=== PATIENT | female | born 1965 | race Caucasian/White ===

== ENCOUNTER 2022-11-07 10:48 | Emergency (ER) | payer BC, SELFPAY ==
[2022-11-07] VITALS (11 sets, daily range): BP systolic 141–175; BP diastolic 75–94; PULSE 61–70; RESP 12–20; TEMP 36.1; O2SAT 95–100
--- NOTE | ~2022-11-07 | CT_ITS ---
EXAMINATION: CT brain wo con DATE: 11/07/2022 13:04 INDICATION: Headache. Pressure behind the eyes. TECHNIQUE: Computed tomography (CT) of the head was performed without intravenous contrast. The mA wa s adjusted according to patient size. Iterative reconstruction technique was employed. The dose-lengt h product was 529.67 mGy-cm. COMPARISON: None FINDINGS: There is no intracranial hemorrhage, acute infarction, or abnormal intracranial mass lesion . The ventricles are normal in size. The orbits are normal. There is mucosal thickening in the parana nataly sinuses. The mastoid air cells are normal. IMPRESSION: 1. Normal brain. Reviewed, dictated and finalized at location A. ETING ANALYST IMPRESSION: 1. Normal brain.
--- NOTE | 2022-11-07 12:15 | ECG_ITS ---
Measurements Intervals [place] Rate: 63 P: 74 WI: 166 QRS: 37 QRSD: 93 T: 50 QT: 398 QTc: 409 Interpretive Statements SINUS RHYTHM NORMAL ECG NO PREVIOUS ECG AVAILABLE FOR COMPARISON Electronically Signed On 11-07-2022 13:18:08 TEST LEAD by Manpreet Webb M.D.
[2022-11-07 12:42] LABS: Basophils Absolute Auto 0.1 K/mm3 (0.0-0.1); Basophils Percent Auto 0.9 % (0.2-1.2); Eosinophils Absolute Auto 0.4 K/mm3 (0-0.3); Eosinophils Percent Auto 5.7 % (0-4.4); Hematocrit 44.9 % (37.0-47.0); Hemoglobin 15.4 g/dL (12.0-15.0); Immature Granulocyte Absolute 0.02 K/mm3 (0.00-0.031); Immature Granulocyte Percent A 0.3 % (0-0.5); Lymphocytes Absolute Auto 1.79 K/mm3 (0.9-3.2); Lymphocytes Percent Auto 26.1 % (18.3-44.2); Mean Corpuscular HGB Conc 34.3 g/dl (32-36); Mean Corpuscular Hemoglobin 32.2 pg (26-34); Mean Corpuscular Volume 93.7 fl (80-100); Mean Platelet Volume 9.2 fl (7.4-10.4); Monocytes Absolute Auto 0.6 K/mm3 (0.1-0.6); Monocytes Percent Auto 8.7 % (2.6-8.5); Neutrophils Percent Auto 58.3 % (45.5-73.1); Platelet Count Result 205 k/mm3 (150-375); Red Blood Count 4.79 M/mm3 (4.2-5.4); Red Cell Distribution Width 12.4 % (11.5-14.5); White Blood Count 6.9 K/mm3 (4.5-10.0)
[2022-11-07 12:45] LABS: Appearance Urine Clear (Clear); Bilirubin Urine Negative (Negative); Blood Urine Trace-intact (Negative); Color Urine Yellow (Yellow); Glucose Urine UA Negative (Negative); Ketones Urine Negative (Negative); Leukocyte Esterase Ur Negative LEU/UL (Negative); Nitrate Urine Negative (Negative); Protein Urine Negative (Negative); Specific Grav Ur 1.015 (1.001-1.035); Urobilinogen Urine 0.2 mg/dL (<2.0); pH Urine 6.5 (5.0-9.0)
[2022-11-07 12:51] LABS: Bacteria Urine Trace /hpf; Mucus Urine Rare /lpf; RBC Urine 0-2 /hpf (0-2); Squamous Epithelial Cell Urine Rare /hpf (Few); WBC Urine 0-3 /hpf
[2022-11-07 12:53] LABS: Add Urine Microscopic? YES
[2022-11-07 12:55] LABS: Alanine Aminotransferase 97 U/L (6-35); Albumin Level 4.6 g/dL (3.5-5.1); Alkaline Phosphatase 84 U/L (38-126); Anion Gap 7 mmol/L (8-16); Aspartate Amino Transferase 85 U/L (14-36); Bilirubin,Total 0.7 mg/dL (0.2-1.3); Blood Urea Nitrogen 14 mg/dL (7-17); Calcium 9.8 mg/dL (8.4-10.2); Carbon Dioxide 29 mmol/L (22-30); Chloride 99 mmol/L (98-107); Estimated CRCL calculation 72 ml/min; Estimated Glomerular Filt Rate > 60; Glucose 86 mg/dL (65-110); Potassium 3.5 mmol/L (3.4-5.0); Sodium 135 mmol/L (137-145)
[2022-11-07] MEDS: HYDROcodone/acetaminophen (*CRX) 5-325 MG TABLET 1 TAB PO (13:37)
[2022-11-07] MEDS: amLODIPine BESYLATE 5 MG TABLET PO (13:38)
--- NOTE | 2022-11-07 14:10 | ED.GENADULT ---
HPI - General Adult General Chief complaint: Recheck/Abnormal Lab/Rx Stated complaint: high blood pressure Time Seen by Provider: 11/07/22 12:10 Source: patient Mode of arrival: ambulatory Limitations: no limitations History of Present Illness HPI narrative: 57-year-old with a history of anxiety and depression here with the complaints of having headache for the past 5 days having headaches mostly retroorbital. Patient states that her blood pressure has been running high. She has seen her primary doctor a week ago and was started on hydrochlorothiazide. She denies any fever or chills no history of nausea or vomiting. Onset (ago): day(s) (5) Location: head Radiation: non-radiation Severity: moderate Quality: aching Pain Consistency: constant Relieving factors: none Exacerbating factors: none Associated symptoms: denies other symptoms Related Data Allergies Allergy/AdvReac Type Severity Reaction Status Date / Time Iodinated Contrast Media AdvReac Intermediate Nausea and Verified 11/07/22 12:05 Vomiting MORPHINE AdvReac Intermediate Itching Uncoded 11/07/22 12:05 Review of Systems Review of Systems: All systems reviewed & are unremarkable except as noted in HPI and below Constitutional: Constitutional: Reports no additional constitutional complaints Eyes: Eyes: Reports no additional eye complaints ENT: Reports system reviewed and no additional complaints, except as documented Cardiovascular: Cardiovascular: Reports no additional cardiovascular complaints Respiratory: Respiratory: Reports no additional respiratory complaints Gastrointestinal: Gastrointestinal: Reports no additional gastrointestinal complaints Musculoskeletal: Musculoskeletal: Reports no additional musculoskeletal complaints Neurologic: Reports as per HPI [facility] Surgical History Surgical History History of appendectomy History of hip surgery RIGHT HIP History of lobectomy of lung Family History Family History Other Asthma Depression Diabetes mellitus Social History Social History Smoking packs per day: 0.5 Smoking cigarettes per day: 10.0 Years smoked: 40 Smoking pack-years: 20.00 Smoking status: Former smoker Tobacco type: cigarettes Smoking end date: 04/27/22 Alcohol intake: current Alcohol use details: DAILY- WINE Substance use: never Substance use type: does not use Gender identity (if verbalized by the patient): Female Spiritual care concerns: No Agree to blood products: Yes Exam Narrative: GENERAL: Well-appearing, well-nourished, and in no acute distress. HEAD: Normocephalic, atraumatic. EYES: PERRLA and EOMI. NECK: Supple. CHEST: Clear to auscultation. No respiratory distress. HEART: Regular rate and rhythm. No murmur heard. Normal peripheral pulses. ABDOMEN: Soft, nontender, nondistended, normal active bowel sounds. EXTREMITIES: Normal range of motion. No edema. SKIN: Warm, dry, no rash. NEURO: No focal deficits. Alert and oriented x3. PSYCH: Normal mood and affect. Course Course Emergency Course: 57-year-old here with a headache, mostly retro-orbital physical exam was unremarkable with a EKG which was normal sinus no acute findings lab work was unremarkable and CT was normal as well I did give her Norvasc 5 mg p.o. very initial blood pressure was 175/90 after a couple hours of observation it is now 155/81 and she is feeling much better. Will start on Norvasc 5 mg daily recommended her to follow-up with her primary doctor. Vital Signs Vital signs: Vital Signs Temperature 36.1 C L 11/07/22 11:45 Pulse Rate 65 11/07/22 11:45 Respiratory Rate 14 11/07/22 11:45 Blood Pressure 175/90 H 11/07/22 11:45 Pulse Oximetry 98 11/07/22 11:45 Oxygen Delivery Room Air 11/07/22 11:45 Temperature 36.1 C L
== END 2022-11-07 14:30 | disposition home or self-care (01) ==
PROVIDERS: Emergency Provider Family Medicine; PCP Emergency Medicine
DX: R51.9 Headache, unspecified (principal); I10 Essential (primary) hypertension; Z90.2 Acquired absence of lung [part of]; Z87.891 Personal history of nicotine dependence
CPT/HCPCS: 36415; 70450; 80053; 81001; 85025; 93005; 99284; A9270

== ENCOUNTER 2023-09-01 15:24 | Outpatient (CLI) | payer OTHER, SELFPAY ==
--- NOTE | ~2023-09-01 | XR_ITS ---
Lumbosacral Spine: AP, oblique, and lateral views Clinical History: Pain Findings: The normal lordotic curve is maintained. The vertebral bodies and posterior elements are i ntact. The intervertebral disc spaces are preserved. There is moderate facet arthropathy at the lowe r lumbar spine. The sacroiliac joints are normally outlined. Impression: Moderate facet arthropathy lower lumbar spine. Reviewed, dictated and finalized at location . 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
== END 2023-09-01 15:25 ==
PROVIDERS: PCP Emergency Medicine; Visit Provider Emergency Medicine
DX: M47.816 Spondylosis without myelopathy or radiculopathy, lumbar region (principal)
CPT/HCPCS: 72110

== ENCOUNTER 2023-10-22 06:50 | Day surgery (SDC) | payer OTHER, SELFPAY ==
[2023-10-08 10:24] VITALS: BMI 31.1
[2023-10-09 10:09] VITALS: BMI 31.0
[2023-10-22 07:45] VITALS: BP 140/84; PULSE 85; RESP 14; TEMP 36.8; O2SAT 97
--- NOTE | 2023-10-22 07:52 | WPDANESEPPF ---
Anes - Initial Pre Proc Eval Procedure: Operation Date: 10/22/23 11:30 Proposed Procedures p Screening Colonoscopy - Lamberto Donohue MD Date/Time: 10/22/23 07:52 Surgeon: Lamberto Dnoohue MD Pre Op Diagnosis: Neoplasm Screening Patient Data Age: 58 Gender: F Height: 1.63 m Weight: 80.2 kg Last Vital Signs Temp 36.8 C 10/22/23 07:45 Pulse 85 10/22/23 07:45 Resp 14 10/22/23 07:45 BP 140/84 10/22/23 07:45 Pulse Ox 97 10/22/23 07:45 O2 Del Method Room Air 10/22/23 07:45 Allergies Allergy/AdvReac Type Severity Reaction Status Date / Time Iodinated Contrast Media AdvReac Intermediate Nausea and Verified 10/22/23 07:40 Vomiting MORPHINE AdvReac Intermediate Itching Uncoded 10/22/23 07:40 Home Medications Medication Instructions Recorded Confirmed Type hydrochlorothiazide 25 mg tablet 25 mg PO DAILY #90 tabs 05/01/23 10/22/23 Rx amlodipine 10 mg tablet 10 mg PO DAILY #90 tabs 06/04/23 10/22/23 Rx duloxetine 30 mg capsule,delayed 30 mg PO DAILY #30 caps 10/06/23 10/22/23 Rx release fluoxetine 20 mg capsule (Prozac) 40 mg PO DAILY 10/06/23 10/22/23 History meloxicam 15 mg tablet 15 mg PO DAILY #30 tabs 10/06/23 10/22/23 Rx Patient hx anesthesia problems: none Family hx anesthesia problems: none Results Review: All pre-operative results and documents have been reviewed as part of the pre-operative evaluation. [facility] Past Medical History Medical History (Updated 10/22/23 @ 07:53 by Jossue Saavedra MD) Benign hypertension Depression History of tobacco abuse Lung cancer Obesity Surgical History Surgical History History of appendectomy History of hip surgery RIGHT HIP History of lobectomy of lung Family History Family History Other Asthma Depression Diabetes mellitus Social History Social History Smoking packs per day: 0.5 Smoking cigarettes per day: 10.0 Years smoked: 40 Smoking pack-years: 20.00 Smoking status: Current some day smoker Tobacco type: cigarettes Smoking end date: 04/27/22 Alcohol intake: current Alcohol use details: DAILY- WINE Substance use: never Substance use type: does not use Lack of Transportation: No Lack of Food: Never True Current Housing: I Have Housing Concerned About Future Housing: No Difficulty Paying Gas/Electric Bills: No Difficulty Paying for Meds: No Currently Unemployed: No Education: Associate Degree Difficulty w/ Childcare or Family Care: No Living arrangements: with roommate(s) Gender identity (if verbalized by the patient): Female Spiritual care concerns: No Agree to blood products: Yes Anes - Eval Final PreProcedure Day of Procedure 10/22/23 07:52 Patient weight: normal Heart: regular rate and rhythm Lungs: clear to auscultation Airway: Mallampati scale class II Neurological: alert and oriented Last oral intake: >/= 8 hours ASA classification: III Emergent: no Anesthetic plan: proceed Anesthesia type and monitoring: general GIVS and standard monitoring Results Review: All pre-operative results and documents have been reviewed as part of the pre-operative evaluation. Informed Consent: The patient's anesthetic plan and its attendant risks and benefits were discussed with the patient/family/POA. Questions were solicited and answers provided to the satisfaction of the patient/family/POA.
[2023-10-22] MEDS: LACTATED RINGERS 1,000 ML 150 ML IV CONT (07:57)
--- NOTE | 2023-10-22 07:58 | PM.HPGS ---
History of Present Illness History of Present Illness Consent: Risks, benefits, and alternatives have been discussed and questions answered. Patient agrees to proceed with procedure. Chief complaint: Neoplasm Screening Narrative: Mana Bui is a 58 year old female presents for screening colonoscopy. Patient's current weight appetite and bowel movements are normal. Patient denies abdominal pain. She has had no bleeding. Family history noncontributory. Review of Systems Review of Systems: Review of systems noncontributory. [facility] Past Medical History Medical History (Updated 10/22/23 @ 07:53 by Jossue Saavedra MD) Benign hypertension Depression History of tobacco abuse Lung cancer Obesity Surgical History Surgical History History of appendectomy History of hip surgery RIGHT HIP History of lobectomy of lung Family History Family History Other Asthma Depression Diabetes mellitus Social History Social History Smoking packs per day: 0.5 Smoking cigarettes per day: 10.0 Years smoked: 40 Smoking pack-years: 20.00 Smoking status: Current some day smoker Tobacco type: cigarettes Smoking end date: 04/27/22 Alcohol intake: current Alcohol use details: DAILY- WINE Substance use: never Substance use type: does not use Lack of Transportation: No Lack of Food: Never True Current Housing: I Have Housing Concerned About Future Housing: No Difficulty Paying Gas/Electric Bills: No Difficulty Paying for Meds: No Currently Unemployed: No Education: Associate Degree Difficulty w/ Childcare or Family Care: No Living arrangements: with roommate(s) Gender identity (if verbalized by the patient): Female Spiritual care concerns: No Agree to blood products: Yes Meds Home Medications and Allergies Home Medications Medication Instructions Recorded Confirmed Type hydrochlorothiazide 25 mg tablet 25 mg PO DAILY #90 tabs 05/01/23 10/22/23 Rx amlodipine 10 mg tablet 10 mg PO DAILY #90 tabs 06/04/23 10/22/23 Rx duloxetine 30 mg capsule,delayed 30 mg PO DAILY #30 caps 10/06/23 10/22/23 Rx release fluoxetine 20 mg capsule (Prozac) 40 mg PO DAILY 10/06/23 10/22/23 History meloxicam 15 mg tablet 15 mg PO DAILY #30 tabs 10/06/23 10/22/23 Rx Allergies Allergy/AdvReac Type Severity Reaction Status Date / Time Iodinated Contrast Media AdvReac Intermediate Nausea and Verified 10/22/23 07:40 Vomiting MORPHINE AdvReac Intermediate Itching Uncoded 10/22/23 07:40 Vital Signs Vital Signs - 24 hr 10/22/23 07:45 Temperature 98.3 F Pulse Rate 85 Respiratory Rate 14 Blood Pressure 140/84 Pulse Oximetry 97 Oxygen Delivery Room Air Exam Narrative: Physical exam reveals patient to be alert. Vital signs stable. HEENT exam is unremarkable. Patient is anicteric. Lungs are clear to auscultation and to percussion extra sounds. Abdomen bowel sounds are present soft nontender with no organomegaly. Digital external rectal exam is normal. Assessment and Plan Assessment and plan (1) Screening for colon cancer: Code(s): Z12.11 - Encounter for screening for malignant neoplasm of colon Status: Acute Assessment and Plan: Patient presents today for screening colonoscopy. She appears to be at average risk for polyp colon polyps.
[2023-10-22 08:52] VITALS: BP 111/59; PULSE 68; RESP 18; O2SAT 98
[2023-10-22 09:02] VITALS: BP 120/73; PULSE 68; RESP 16; O2SAT 100
--- NOTE | 2023-10-22 09:07 | WPDANESPN ---
Anes - Prog Note Post-Op Date/Time: 10/22/23 09:07 Cardiovascular status: normal Respiratory status: normal Airway patency: baseline Mental status: baseline Vital Signs: Last Vital Signs Temp 36.8 C 10/22/23 07:45 Pulse 68 10/22/23 08:52 Resp 18 10/22/23 08:52 BP 111/59 L 10/22/23 08:52 Pulse Ox 98 10/22/23 08:52 O2 Del Method Room Air 10/22/23 08:52 Pain Score (VAS): 0/10 I/O: Intake & Output 10/21/23 10/22/23 10/22/23 23:59 07:59 15:59 Intake Total 350 Balance 350 Patient Feedback: Patient satisfied with anesthetic care.
[2023-10-22 09:12] VITALS: BP 122/75; PULSE 70; RESP 14; O2SAT 100
== END 2023-10-22 09:25 | disposition home or self-care (01) ==
PROVIDERS: PCP Emergency Medicine; Visit Provider Internal Medicine Gastroenterology
PROC: 0DJD8ZZ Inspection of Lower Intestinal Tract, Via Natural or Artificial Opening Endoscopic (ICD-10-PCS; CPT 45378; principal; 2023-10-22 11:30)
DX: Z12.11 Encounter for screening for malignant neoplasm of colon (principal); D12.2 Benign neoplasm of ascending colon
CPT/HCPCS: 45380

== ENCOUNTER 2023-10-22 07:08 | Outpatient (NON) | payer OTHER, SELFPAY | END 2023-10-22 07:09 | disposition home or self-care (01) | LOC: ANHLAB 10-23 07:11 | PROVIDERS: PCP Emergency Medicine; Visit Provider Internal Medicine Gastroenterology | DX: Z12.11 Encounter for screening for malignant neoplasm of colon (principal) | CPT/HCPCS: 88305 ==

== ENCOUNTER 2023-10-27 09:00 | Outpatient (RCR) | payer OTHER, SELFPAY ==
--- NOTE | 2023-10-01 17:11 | OPREHPOC ---
Outpatient Therapy Plan of Care This is a Multidisciplinary Plan of Care that may contain components documented by all disciplines (PT, OT, and ST.) PT Problem 1 PT Problem #1 Knowledge Deficit PT Goal 1 Goal Pt to be IND with issued HEP Target Visit 8 PT Problem 2 PT Problem #2 Pain PT Goal 1 Goal Pt to report pain no greater than 3/10 in the last week. Target Visit 8 PT Goal 2 Goal Pt to report 75% improvement in overall symptoms. Target Visit 8 PT Problem 3 PT Problem #3 Impaired Sensation PT Goal 1 Goal Pt to decline radicular symptoms in the last week Target Visit 8 PT Problem 4 PT Problem #4 Impaired Functional Mobil PT Goal 1 Goal Pt to demonstrate floor to stand transfers without external support Target Visit 8 PT Goal 2 Goal Pt to improve Oswestry from 22/50 to 10/50.
--- NOTE | 2023-10-01 17:11 | PTOPEVAL1 ---
Assessment and note entered by Sony Serrano, PT, DPT Evaluation Information Assessment Status Evaluation Diagnosis low back pain Subjective Information Pt reports she is having some sciatic nerve pain, she states this starts in her low back, goes down through her buttock, and down to her foot. She reports this has been going on for about 6 weeks. She states a chiropractor has seen her and states her pelvis alignment is off, they were able to correct this at times. She states she is currently of prescriptions pain medication. Pt states she can tolerate sitting no more than 10 mins on most days. 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 Reported Pain Level Pain Score 3: Self Report Assessment PT Clinical Summary Mana presents to therapy today for her initial evaluation with a diagnosis of low back with L sided sciatic pain. Today she demonstrates pelvic asymmetry in supine, gait deviations, piriformis tenderness, and decreased hip strength. She favors her L side during gait and functional squatting. Skilled therapy services are indicated to address the deficits noted above, to manage pain, and to return to PLOF. Oswestry: , 44% disability Plan of Care Interventions Electrical Stimulation,Gait Training,Hot Pack/Cold Pack,Manual Therapy,Neuro Re-education,Patient/ Caregiver Educati,Therapeutic Activities, Therapeutic Exercise PT Services Indicated Yes Treatment Frequency and 2x/wk for 8 visits Duration These treatments will address the objective and functional deficits as defined above. The patient will be advanced safely and appropriately in order for the patient to progress towards his/her prior level of function. Additional exercises will be introduced and as well as a comprehensive home exercise program upon discharge, if needed, ?to ensure carryover of functional gains achieved in the clinic. This treatment plan has been reviewed and agreement upon by the patient.
--- NOTE | 2023-10-27 09:46 | PTOPPROG ---
Assessment and note entered by Sony Serrano, PT, DPT Evaluation Information Assessment Status Progress Diagnosis low back pain Subjective Information Pt states she is not having a good pain today. She states she continues to have pain from her buttock to her toes, her knee is numb, she cannot walk without pain, cannot bend over, or put her socks/shoes on on her own. She is still taking medication in order to sleep at night. She states mornings are always and have not improved at all since starting therapy. She states overall she feels like her pain is about the same since starting therapy. Pt states she is hoping for an MRI. She reports performing her HEP 1-2x per day. Assessment PT Clinical Summary Mana presents to therapy today for her progress report following 6 visits of skilled therapy to treat her diagnosis of low back with L sided sciatic pain. Today she continues demonstrates pelvic asymmetry in supine, gait deviations d/t pain, piriformis tenderness, and decreased hip strength. She continues to favors her L side during gait and functional squatting. She is making slow progress towards her therapy goals as pain is still a limited factor. Continuation of skilled therapy services are indicated to continue addressing pain. She would like to follow up with her PCP prior to continuing therapy. Oswestry: 24/50, 48% disability Plan of Care Interventions Electrical Stimulation,Gait Training,Hot Pack/Cold Pack,Manual Therapy,Neuro Re-education,Patient/ Caregiver Educati,Therapeutic Activities, Therapeutic Exercise PT Services Indicated Yes Treatment Frequency and 2x/wk for 8 visits pending follow up with PCP Duration These treatments will address the objective and functional deficits as defined above. The patient will be advanced safely and appropriately in order for the patient to progress towards his/her prior level of function. Additional exercises will be introduced and as well as a comprehensive home exercise program upon discharge, if needed, ?to ensure carryover of functional gains achieved in the clinic. This treatment plan has been reviewed and agreement upon by the patient.
--- NOTE | 2023-12-09 11:57 | PTOPDC ---
Assessment and note entered by Sony Serrano, PT, DPT Evaluation Information Assessment Status Discharge - Pt Not Present Diagnosis low back pain Subjective Information Called pt to follow up, she states her pain is the same. She is getting an injection for a bulging disc next week and hopes this helps. She states she does not wish to continue with therapy at this time. Assessment PT Clinical Summary Mana completed 6 visits of skilled therapy from 10/01/23 to 10/27/23. She will be discharged at this time per pt request.
== END 2023-12-09 13:20 | disposition home or self-care (01) ==
LOC: ANHGOSHPT 09:00
PROVIDERS: PCP Emergency Medicine; Visit Provider Emergency Medicine
DX: M54.50 Low back pain, unspecified (principal); G89.29 Other chronic pain
CPT/HCPCS: 97110; 97140; 97161; 97530

== ENCOUNTER 2023-11-09 15:24 | Outpatient (CLI) | payer OTHER, SELFPAY ==
--- NOTE | ~2023-11-09 | MR_ITS ---
MRI of the lumbar spine Clinical History: Back pain Technique: Axial T2-weighted images, and sagittal T1-weighted, T2-weighted, and and T2 fat-sat images were acquired. Findings: There is no fracture or subluxation of the lumbar spine. Vertebral bodies maintain normal h eight and alignment. No suspicious bone marrow signal abnormality seen. At L1-L2, there is no disc bulge or herniation. No spinal canal stenosis or neural foraminal narrowin g identified. At L2-L3, there is no disc bulge or herniation. No spinal canal stenosis or neural foraminal narrowin g. L3-L4, there is no disc bulge or herniation. No spinal canal stenosis or neural foraminal narrowing. At L4-L5, there is disc protrusion superimposed upon disc bulge with advanced facet arthropathy. Ther e is moderate to advanced central canal stenosis/thecal sac compression. Bilateral neural foramina ar e preserved. At L5-S1, there is minimal disc bulge with moderate facet arthropathy. No central canal stenosis or n eural foraminal narrowing. Paravertebral soft tissues are unremarkable. Impression: Moderate to advanced degenerative spondylosis at L4-L5, as detailed above. Minimal degenerative change in the remainder of the lumbar spine. Reviewed, dictated and finalized at location . 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 Minimal degenerative change in the remainder of the lumbar spine.
== END 2023-11-09 15:25 ==
LOC: MICIMG 15:26
PROVIDERS: PCP Physical Medicine & Rehabilitation Pain Medicine; Visit Provider Emergency Medicine
DX: M54.40 Lumbago with sciatica, unspecified side (principal); G89.29 Other chronic pain; M47.896 Other spondylosis, lumbar region
CPT/HCPCS: 72148

== ENCOUNTER 2023-12-22 15:09 | Outpatient (CLI) | payer OTHER, SELFPAY ==
--- NOTE | ~2023-12-22 | XR_ITS ---
EXAMINATION: XR pelvis 1-2V INDICATION: Sacroiliitis TECHNIQUE: AP view of the pelvis is obtained. COMPARISON: MRI, 11/09/2023 FINDINGS: Bone alignment is normal. There is no acute fracture. There is a questionable old healed fr acture of the pubic symphysis on the left. The sacroiliac joints appear unremarkable. There is mild o steoarthritis of the hips. IMPRESSION: 1. No acute osseous abnormality. Reviewed, dictated and finalized at location F.
== END 2023-12-22 15:10 ==
PROVIDERS: PCP Emergency Medicine; Visit Provider Physical Medicine & Rehabilitation Pain Medicine
DX: M46.1 Sacroiliitis, not elsewhere classified (principal)
CPT/HCPCS: 72170

== ENCOUNTER 2024-01-14 11:30 | Outpatient (CLI) | payer OTHER, SELFPAY ==
--- NOTE | ~2024-01-14 | XR_ITS ---
EXAMINATION: XR scoliosis survey, XR lumbar spine min 4V DATE: 01/14/2024 12:01 INDICATION: Lumbar spinal stenosis with radiculopathy. Chronic back pain. TECHNIQUE: 1. Standing frontal and lateral views of the entire spine were each obtained on 3 separate overlappin g cranial to caudal images. 2. Standing AP, lateral, lateral flexion and lateral extension views of the lumbar spine were obtaine d. COMPARISON: None. FINDINGS: A degree levocurvature measured between T2 and T9. Normal sagittal alignment of the thoracic spine. V ertebral body heights are normal. There is mild disc height loss with mild degenerative endplate charles ges at multiple levels in the midthoracic spine. Postoperative changes of a prior partial right pneum onectomy with paramediastinal suture line and multiple surgical clips at the right hilum. Lead breast shielding. 2 degree lumbar levocurvature with minimal rotational component with the epicenter of the vertebral b odies position slightly to the left of the spinous processes. There is 3 mm anterolisthesis of L4 on L5 which is unchanged with flexion and extension. There is also approximately 3 mm left lateral listh esis of L4 on L5. There is normal motion of the lumbar spine with flexion and extension. Lumbar verte bral body heights are normal. Mild disc height loss at T12-L1 and L4-L5. Mild bilateral sacral erect osteoarthritis. Cholecystectomy clips in right upper quadrant. IMPRESSION: 1. 8 degree thoracic levocurvature with mild thoracic spondylosis. 2. Mild lumbar spondylosis with 3 mm anterior and left lateral listhesis L4 on L5, the former unchang ed on the lateral projection with flexion or extension. Reviewed, dictated and finalized at location A. IMPRESSION: 1. 8 degree thoracic levocurvature with mild thoracic spondylosis. 2. Mild lumbar spondylosis with 3 mm anterior and left lateral listhesis L4 on L5, the former unchanged on the lateral projection with flexion or extension.
== END 2024-01-14 11:31 ==
PROVIDERS: PCP Emergency Medicine; Visit Provider Neurological Surgery
DX: M48.061 Spinal stenosis, lumbar region without neurogenic claudication (principal); M47.896 Other spondylosis, lumbar region; M47.894 Other spondylosis, thoracic region
CPT/HCPCS: 72082; 72110

== ENCOUNTER 2024-01-28 12:30 | Outpatient (CLI) | payer OTHER, SELFPAY ==
--- NOTE | ~2024-01-28 | MM_ITS ---
EXAMINATION: MM screening neha BI w ray HISTORY: Screening mammogram TECHNIQUE: Craniocaudal and mediolateral oblique 3-D tomosynthesis images were obtained and synthetic 2-D images were generated. CAD analysis was submitted and interpreted. COMPARISON: No prior mammogram is available for comparison at this institution. BREAST PARENCHYMAL COMPOSITION: The breasts are heterogeneously dense, which may obscure small masses . FINDINGS: 3.6 x 4.9 mm low-density circumscribed benign-appearing opacity is noted in the lower centr al left breast (clinical Ray symphysis image ; MLO to the symphysis image ). Occasional benign calcifications. There is no evidence of suspicious mass, calcification, or architec tural distortion to suggest malignancy in either breast. IMPRESSION: 1. No mammographic evidence of malignancy. 2. Recommend routine screening mammography in one year. BI-RADS Category 2: Benign finding(s). Reviewed, dictated and finalized at location A.
== END 2024-01-28 12:31 ==
LOC: MICIMG 12:31
PROVIDERS: PCP Emergency Medicine; Visit Provider Emergency Medicine
DX: Z12.31 Encounter for screening mammogram for malignant neoplasm of breast (principal)
CPT/HCPCS: 77063; 77067

== ENCOUNTER 2024-05-16 09:44 | Outpatient (CLI) | payer OTHER, SELFPAY ==
--- NOTE | ~2024-05-16 | CT_ITS ---
CT pelvis wo con Ordering provider: Lakesha Hallman MD History: . Sacroilitis . Comparison: None. Technique: CT pelvis without oral and IV contrast. . Automated exposure control and iterative recons truction technique were employed. The dose-length product was 517.49 mGy-cm. Findings: BONES: No pelvic fracture or hip dislocation. Small bony fragment seen anterior to the right acetabul um may be old chip fracture or soft tissue ossification Age appropriate degenerative changes of the v isualized lower lumbar spine. The hip and sacroiliac joint spaces are well maintained. Pubic symphysitis. SUPERFICIAL SOFT TISSUES: Normal. PELVIC ORGANS: The bladder is normal. VISUALIZED BOWEL AND MESENTERY: Normal. No free air or free fluid. No lymphadenopathy. RETROPERITONEUM: Mild atheromatous disease. IMPRESSION: No acute osseous abnormalities. No evidence of sacroiliitis seen. Pubic symphysitis. Reviewed, dictated and finalized at location A.
== END 2024-05-16 09:45 ==
LOC: MICIMG 09:44
PROVIDERS: PCP Emergency Medicine; Visit Provider Physical Medicine & Rehabilitation Pain Medicine
DX: M46.1 Sacroiliitis, not elsewhere classified (principal)
CPT/HCPCS: 72192

== ENCOUNTER 2024-08-09 13:32 | Outpatient (CLI) | payer OTHER, SELFPAY ==
--- NOTE | 2024-08-09 | ECG_ITS ---
Test Date: 2024-08-09 13:59:07 Measurements Intervals [place] Rate: 71 P: 63 IA: 162 QRS: 28 QRSD: 158 T: 70 QT: 461 QTc: 503 Interpretive Statements SINUS RHYTHM LEFT BUNDLE BRANCH BLOCK ABNORMAL ECG No previous ECG available for comparison Electronically Signed On 08-09-2024 14:18:27 RADIO DISC [facility] by Jermaine Hart D.O.
== END 2024-08-09 13:33 | disposition home or self-care (01) ==
PROVIDERS: PCP Emergency Medicine
DX: M51.26 Other intervertebral disc displacement, lumbar region (principal); I44.7 Left bundle-branch block, unspecified
CPT/HCPCS: 93005

== ENCOUNTER 2025-09-07 11:39 | Outpatient (CLI) | payer OTHER, SELFPAY ==
--- NOTE | ~2025-09-07 | MM_ITS ---
EXAMINATION: MM screening neha BI w ray HISTORY: Screening. TECHNIQUE: Craniocaudal and mediolateral oblique 3-D tomosynthesis images were obtained and synthetic 2-D images were generated. CAD analysis was submitted and interpreted. COMPARISON: 2023 BREAST PARENCHYMAL COMPOSITION: Dense: The breasts are heterogeneously dense FINDINGS: No suspicious masses are seen. There are no suspicious calcifications. No unexplained architectural distortion is seen. There are no skin or nipple abnormalities identified. There is no adenopathy seen on the images submitted. IMPRESSION: No mammographic evidence to suggest malignancy is seen. The patient may return to screening mammography as per ACR guidelines. BI-RADS 1 - Negative. Reviewed, dictated and finalized at location C. [facility]
== END 2025-09-07 11:40 | disposition home or self-care (01) ==
PROVIDERS: PCP Student in an Organized Health Care Education/Training Program; Visit Provider Student in an Organized Health Care Education/Training Program
DX: Z12.31 Encounter for screening mammogram for malignant neoplasm of breast (principal)
CPT/HCPCS: 77063; 77067